=== PATIENT | female | born 1955 | race Asian ===

== ENCOUNTER 2016-12-21 10:00 | Day surgery (SDC) | payer OTHER ==
[2016-12-17 09:58] LABS: BASOPHILS % (AUTO) 0.5 % (0.0-2.0); EOSINOPHILS # (AUTO) 0.1 K/uL (0.0-0.4); EOSINOPHILS % (AUTO) 1.7 % (0.0-4.0); HEMATOCRIT 45.5 % (36-48); HEMOGLOBIN 15.1 g/dL (12.0-16.0); LYMPHOCYTES # (AUTO) 1.4 K/uL (1.0-5.5); LYMPHOCYTES % (AUTO) 23.2 % (20.5-51.5); MEAN CORPUSCULAR HEMOGLOBIN 30 pg (27-31); MEAN CORPUSCULAR HGB CONC 33 % (32-36); MEAN CORPUSCULAR VOLUME 90 fL (79.0-98.0); MONOCYTES # (AUTO) 0.5 K/uL (0.0-1.0); MONOCYTES % (AUTO) 7.7 % (1.7-9.3); NEUTROPHILS # (AUTO) 3.9 K/uL (1.8-7.7); NEUTROPHILS % (AUTO) 66.9 % (40.0-70.0); PLATELET COUNT (AUTO) 222 K/uL (130-430); RED BLOOD CELL COUNT(AUTO) 5.07 MIL/uL (4.2-6.2); RED CELL DISTRIBUTION WIDTH 12.7 % (9.0-15.0); WHITE BLOOD COUNT (AUTO) 5.9 K/uL (4.8-10.8)
[2016-12-17 10:07] LABS: BILIRUBIN,URINE NEGATIVE (NEGATIVE); BLOOD, URINE NEGATIVE (NEGATIVE); CLARITY/URINE CLEAR (CLEAR); COLOR,URINE YELLOW (YELLOW); GLUCOSE,URINE NEGATIVE (NEGATIVE); KETONES,URINE NEGATIVE (NEGATIVE); LEUKOCYTE ESTERASE ,URINE NEGATIVE (NEGATIVE); NITRITE, URINE NEGATIVE (NEGATIVE); PROTEIN URINE NEGATIVE (NEGATIVE); UROBILINOGEN,URINE 0.2 (0.2-1.0)
[2016-12-17 10:37] LABS: CALCIUM 9.2 mg/dL (8.4-11.0); CREATININE 0.81 mg/dL (0.55-1.30); POTASSIUM 3.6 mmol/L (3.5-5.1); THYROID STIMULATING HORMONE 0.68 uIu/mL (0.34-4.82); TOTAL BILIRUBIN 0.4 mg/dL (0.0-1.0); TOTAL PROTEIN, SERUM 7.5 g/dL (6.4-8.3)
[2016-12-18 13:37] LABS: HEMOGLOBIN A1C 5.8 % (4.8-5.6)
[2016-12-18 13:41] LABS: CREATININE, URINE 126.5 mg/dL; MICROALBUMIN URINE RANDOM 48.8 ug/ml (NOT ESTABLISHED); MICROALBUMIN/CREAT RATIO, UR 38.6 MG/G CRE (0.0-30.0)
[~2016-12-21] VITALS: Ht 152.4 cm; Wt 58.1 kg
[~2016-12-21 10:00] MED LIST: AMOX-426 PO; LACTIN GT
[2016-12-21 11:24] VITALS: O2SAT 97
[2016-12-21] MEDS ORDERED: LR 1,000 ML IV SCH (12:39)
[2016-12-21] MEDS ORDERED: HYDROmorphone 1 MG INJ. 1 MG/ML AMPUL IVP PRN (12:45)
[2016-12-21] MEDS ORDERED: KETOROLAC TROMETHAMINE 30 MG VIAL IVP PRN (12:45)
[2016-12-21] MEDS ORDERED: HYDROmorphone 2 MG/ML VIAL IVP PRN ×2 (12:45)
[2016-12-21] MEDS ORDERED: ONDANSETRON HCL 4 MG/2 ML VIAL IVP PRN (12:45)
[2016-12-21] MEDS ORDERED: MEPERIDINE HCL/PF 25 MG/ML DISP.SYRIN IVP PRN ×2 (12:45)
[2016-12-21] MEDS ORDERED: LR 1,000 ML IV.SOLN IV ONE (13:03)
[2016-12-21] MEDS ORDERED: fentaNYL CITRATE/PF 100 MCG/2 ML AMP IVP ONE (13:03)
[2016-12-21] MEDS ORDERED: CEFAZOLIN 2 GM IVPB PREMIX 50 ML IV ONE (13:03)
[2016-12-21] MEDS ORDERED: SEVOFLURANE 15 MIN GAS INH ONE (13:03)
[2016-12-21] MEDS ORDERED: MIDAZOLAM HCL 5 MG/5 ML VIAL IVP ONE (13:03)
[2016-12-21] MEDS ORDERED: KETOROLAC TROMETHAMINE 30 MG VIAL IVP ONE (13:03)
[2016-12-21] MEDS ORDERED: PROPOFOL 200MG/ 20ML VIAL (DIPRIVAN) IV ONE (13:03)
[2016-12-21] MEDS ORDERED: BUPIVACAINE /EPINEPHRINE/PF 0.5% 30 ML VIAL INJ ONE (13:03)
[2016-12-21] MEDS ORDERED: ONDANSETRON HCL 4 MG/2 ML VIAL IVP ONE (13:03)
[2016-12-21] MEDS ORDERED: NS IRRIG SOLN 1000 ML IR ONE (13:03)
[2016-12-21 15:25] VITALS: BP 117/68; PULSE 68; RESP 17
== END 2016-12-21 16:10 | disposition home or self-care (01) ==
LOC: SDS 10:00 → SMU 10:01 → SDS 16:10
PROVIDERS: ATTEND Surgery
DX: K64.3 Fourth degree hemorrhoids (principal); E11.9 Type 2 diabetes mellitus without complications; E04.1 Nontoxic single thyroid nodule; J45.909 Unspecified asthma, uncomplicated; K21.9 Gastro-esophageal reflux disease without esophagitis; I10 Essential (primary) hypertension
CPT/HCPCS: 36415; 45300; 46260; 80053; 80061; 81003; 82043; 82306; 82570; 82607; 82962; 83036; 84443; 85025; 88304; 93005; J0690; J1885; J2250; J2405; J2704; J3010; J3490; J7120

== ENCOUNTER 2017-01-01 16:58 | Inpatient (IN) | payer OTHER ==
[~2017-01-01] VITALS: Ht 152.4 cm; Wt 56.2 kg
[2017-01-01 17:15] VITALS: BP 180/115; PULSE 91; RESP 14; TEMP 98.6; O2SAT 97
[2017-01-01] MEDS ORDERED: ONDANSETRON HCL 4 MG/2 ML VIAL IVP ONE (17:15)
[2017-01-01] MEDS ORDERED: KETOROLAC TROMETHAMINE 30 MG VIAL IVP ONE (17:15)
--- NOTE | 2017-01-01 17:15 | NUR ---
Patient to ER bed 7 to gown for evaluation. Side rails up. Report given to ABAD ARANDA.
--- NOTE | 2017-01-01 17:15 | NUR ---
ER at bedside examining patient.
--- NOTE | 2017-01-01 17:20 | NUR ---
PT TO ER AAOx4 C/O ABD PAIN 05/03 STATES THAT SHE HD HEMORRHOIDECTOMY ON DEC 21, 2016, ALSO C/O RECTAL PAIN 05/03, STATES SHE TOOK TRAMADOL 7MG ONCE THIS MORNING, C/O NAUSEA, DENIES SOB DENIES CHEST PAIN DENIES VOMITING, STATES THAT SHE ALSO HAS PAINFUL URINATION FOR 2 DAYS
--- NOTE | 2017-01-01 17:30 | NUR ---
# 20 gauge angiocath placed to lac. Use of asceptic technique. Opsite placed over site. Blood return noted. Blood for lab drawn from site. Flushed with 10 cc of normal saline. No evidence of infiltration noted. Patient tolerated well.
[2017-01-01 17:38] LABS: BASOPHILS # (AUTO) 0.2 K/uL (0.0-0.2); BASOPHILS % (AUTO) 1.8 % (0.0-2.0); EOSINOPHILS # (AUTO) 0.1 K/uL (0.0-0.4); EOSINOPHILS % (AUTO) 0.8 % (0.0-4.0); HEMATOCRIT 49.1 % (36-48); HEMOGLOBIN 16.3 g/dL (12.0-16.0); LYMPHOCYTES # (AUTO) 1.7 K/uL (1.0-5.5); LYMPHOCYTES % (AUTO) 17.8 % (20.5-51.5); MEAN CORPUSCULAR HEMOGLOBIN 29 pg (27-31); MEAN CORPUSCULAR HGB CONC 33 % (32-36); MEAN CORPUSCULAR VOLUME 88 fL (79.0-98.0); MONOCYTES # (AUTO) 0.6 K/uL (0.0-1.0); MONOCYTES % (AUTO) 6.8 % (1.7-9.3); NEUTROPHILS # (AUTO) 6.8 K/uL (1.8-7.7); NEUTROPHILS % (AUTO) 72.8 % (40.0-70.0); PLATELET COUNT (AUTO) 256 K/uL (130-430); RED BLOOD CELL COUNT(AUTO) 5.56 MIL/uL (4.2-6.2); RED CELL DISTRIBUTION WIDTH 12.4 % (9.0-15.0); WHITE BLOOD COUNT (AUTO) 9.4 K/uL (4.8-10.8)
--- NOTE | 2017-01-01 17:39 | NUR ---
pt. out to ct via kait with puma
[2017-01-01 17:50] LABS: CALCIUM 10.1 mg/dL (8.4-11.0); CREATININE 0.89 mg/dL (0.55-1.30); POTASSIUM 3.4 mmol/L (3.5-5.1)
[2017-01-01 17:51] LABS: INR 0.9 (0.8-1.2)
[2017-01-01 17:54] LABS: ALBUMIN 4.5 g/dL (3.4-4.8); TOTAL BILIRUBIN 0.5 mg/dL (0.0-1.0); TOTAL PROTEIN, SERUM 8.4 g/dL (6.4-8.3)
--- NOTE | 2017-01-01 17:54 | NUR ---
pt. to bed 7 back from radiology via kait
--- NOTE | 2017-01-01 18:15 | NUR ---
PT. ABLE TO VOID URINE SENT TO LAB
--- NOTE | 2017-01-01 18:40 | NUR ---
Patient will be admitted to care of DR. SHELTON. Admitted to [facility] unit. Will go to room 108 C. Belongings list ASKED TO BE CMPLETED BY CARA Summary report printed. Report given to FILOMENA MELGOZA.
[2017-01-01 18:42] LABS: BILIRUBIN,URINE NEGATIVE (NEGATIVE); BLOOD, URINE 1+ (NEGATIVE); CLARITY/URINE CLEAR (CLEAR); COLOR,URINE YELLOW (YELLOW); GLUCOSE,URINE NEGATIVE (NEGATIVE); KETONES,URINE NEGATIVE (NEGATIVE); LEUKOCYTE ESTERASE ,URINE NEGATIVE (NEGATIVE); NITRITE, URINE NEGATIVE (NEGATIVE); PROTEIN URINE NEGATIVE (NEGATIVE); UROBILINOGEN,URINE 0.2 (0.2-1.0)
--- NOTE | 2017-01-01 18:51 | NUR ---
ADMISSION NOTE Received patient from ER via kait, received report from MANOJ MELGOZA. Patient admitted with diagnosis of FECAL IMFACTION. Patient oriented to hospital routine, call light, toileting and safety-patient verbalized understanding.
[2017-01-01] MEDS ORDERED: CALC-226 PO (18:58)
[2017-01-01] MEDS ORDERED: EZET10TA PO (18:58)
[2017-01-01] MEDS ORDERED: GLUXR500 PO (18:58)
[2017-01-01] MEDS ORDERED: VIT1TABL67 PO (18:58)
[2017-01-01] MEDS ORDERED: TEMA15CA51 PO (18:58)
--- NOTE | 2017-01-01 18:58 | NUR ---
MEDICATION RECONCILIATION COMPLETED
[2017-01-01 19:01] VITALS: BP 151/93; PULSE 79; RESP 18; TEMP 96.2; O2SAT 97
[2017-01-01 19:10] VITALS: BP 151/93; PULSE 79; RESP 16; TEMP 96.5; O2SAT 97
--- NOTE | 2017-01-01 19:10 | NUR ---
Initial note pt. received aaox4, no s/s of sob or distress noted at this time. pt. states she is having some pain, 7/10 on pain scale. will medicate for pain as ordered. IV access noted to left AC, saline lock. flushes well, no redness or swelling to the site. is at the bedside. plan of care discussed with both, verbalize understanding. pt. encouraged to call for any assistance. will continue to monitor for any changes. safety and fall precautions in place. call light in reach, bed in lowest position.
[2017-01-01 19:13] LABS: BACTERIA,URINE FEW /HPF (None Seen); RBC,URINE 0-3 /HPF (0-3)
[2017-01-01 19:14] LABS: FINE GRANULAR CASTS,URINE 0-10 /LPF (None Seen); MUCUS,URINE 1+ /LPF (None Seen)
[2017-01-01] MEDS ORDERED: MENTHOL/ZINC OXIDE 113 GM OINT. TP PRN (19:15)
[2017-01-01] MEDS ORDERED: DOCUSATE SODIUM 100 MG CAPSULE PO PRN (19:15)
[2017-01-01] MEDS ORDERED: MAGNESIUM CITRATE 300 ML ORAL SOLUTION PO ONE (19:15)
[2017-01-01] MEDS ORDERED: MORPHINE 2 MG/ML INJ. SYRINGE IVP PRN ×2 (19:15→21:15)
[2017-01-01] MEDS ORDERED: traMADol HCL HCL 50 MG TABLET (ULTRAM) PO PRN (19:15)
[2017-01-01] MEDS ORDERED: MINERAL OIL 133 ML ENEMA RC ONE ×2 (19:45→21:00)
[2017-01-01] MEDS: POLYETHYLENE GLYCOL 3350, 17 GM/ POWD.PACK PO SCH (20:40)
[2017-01-01] MEDS: PSYLLIUM HUSK 1 PKT PACKET PO SCH (20:40)
--- NOTE | 2017-01-01 20:50 | NUR ---
RN NOTE MINERAL OIL ENEMA GIVE. PT. TOLERATED WELL. ALREADY UP IN RESTROOM TO HAVE BM. PT. DID NOT WISH TO TAKE METAMUCIL OR MIRILAX THIS EVENING SHE STATES SHE WAS ALREADY GIVEN MAG CITRATE AND WAS GETTING THE ENEMA. WILL CONTINUE TO MONITOR.
[2017-01-01] MEDS ORDERED: POTASSIUM CHLORIDE 20 MEQ TAB.PRT.SR PO ONE (21:00)
[2017-01-01] MEDS ORDERED: NA PHOS,M-B/NA PHOS,DI-BA 118 ML (FLEET ENEMA) RC ONE (21:00)
[2017-01-01] MEDS ORDERED: DEXTROSE 50% JECT 50 ML DISP.SYRIN IVP PRN (21:15)
[2017-01-01] MEDS ORDERED: LACTOBACILLUS RHAMNOSUS GG 1 CAP CAPSULE PO ONE (21:15)
[2017-01-01] MEDS ORDERED: MINERAL OIL 30 ML UDC PO ONE (21:15)
[2017-01-01] MEDS ORDERED: ONDANSETRON HCL 4 MG/2 ML VIAL IVP PRN (21:15)
[2017-01-01] MEDS ORDERED: AMOXICILLIN/CLAVULANATE POTASSIUM 875 MG TABLET PO ONE (21:15)
[2017-01-01] MEDS ORDERED: ACETAMINOPHEN 325 MG TABLET PO PRN (21:15)
[2017-01-01] MEDS ORDERED: TEMAZEPAM 15 MG CAPSULE PO SCH (21:15)
[2017-01-01] MEDS ORDERED: INSULIN REGULAR, HUMAN 100 UNITS/ML, 10 ML VIAL (novoLIN R) SUBCUT PRN (21:15)
[2017-01-01] MEDS ORDERED: cloNIDine HCL 0.1 MG TABLET PO PRN (21:45)
[2017-01-01] MEDS ORDERED: PANTOPRAZOLE SODIUM 40 MG TAB PO ONE (22:00)
[2017-01-01] MEDS ORDERED: TEMAZEPAM 15 MG CAPSULE PO ONE (22:00)
--- NOTE | 2017-01-01 22:00 | NUR ---
rounds pt. resting in bed. is at the bedside. provided pt. with jodie per her request. pt. states pain medication has reduced pain, however she has still not been able to have a bowel movement. pt. encourage to try to relax when trying to have a BM. verbalizes understanding. will continue to monitor. call light in reach. bed in lowest position.
[2017-01-01 23:52] VITALS: BP 129/82; PULSE 78; RESP 16; TEMP 97.8; O2SAT 95
--- NOTE | 2017-01-02 00:06 | NUR ---
rounds pt. resting in bed. is at the bedside. pt. still not able to have a BM. will continue to monitor. SCDs applied bilaterally. medication orders were input late by dr. medina, will administer. will initiate IV fluids as ordered. safety and fall precautions in place, call light in reach.
[2017-01-02] MEDS: LR 1,000 ML IV SCH ×3 (00:30→15:23)
--- NOTE | 2017-01-02 01:48 | NUR ---
CONSULT: DR LO (DR SAW PATIENT).
--- NOTE | 2017-01-02 02:01 | NUR ---
rounds pt. resting in bed. no complaints of any pain at this time. is at bedside. IV fluids are infusing well. will continue to monitor for any changes. safety and fall precautions in place. call light in reach, bed in lowest position.
--- NOTE | 2017-01-02 04:17 | NUR ---
ROUNDS PT. RESTING IN BED WITH EYES CLOSED. CHEST RISE AND FALL NOTED. NO SIGNS OF ACUTE DISTRESS. NO FACIAL GRIMACING INDICATING ANY PAIN. IV FLUIDS INFUSING WELL ORDERED. REMAINS AT THE BEDSIDE. WILL CONTINUE TO MONITOR. SAFETY AND FALL PRECAUTIONS IN PLACE. CALL LIGHT IN REACH.
[2017-01-02] MEDS: KETOROLAC TROMETHAMINE 15 MG VIAL IVP PRN ×3 (05:12→22:30)
[2017-01-02 05:14] VITALS: BP 127/89; PULSE 60; RESP 60; TEMP 97; O2SAT 18
--- NOTE | 2017-01-02 06:42 | NUR ---
CLOSING NOTE PT. RESTING IN BED. NO ACUTE DISTRESS NOTED. BLOOD SUGAR THIS AM WAS 129, NO COVERAGE NEEDED. PT. UNABLE TO HAVE A BOWEL MOVEMENT THIS SHIFT. SPECIMEN CUP LEFT AT THE BEDSIDE FOR PT. TO PROVIDE URINE SAMPLE. IV FLUIDS INFUSING WELL. PT. REPORTS A DECREASE IN PAIN. IS AT THE BEDSIDE. ALL NECESSARY NEEDS MET. PT. LEFT COMFORTABLE. SAFETY AND FALL PRECAUTIONS MAINTAINED. WILL ENDORSE CARE TO AM NURSE. CALL LIGHT IN REACH.
[2017-01-02 06:58] LABS: BASOPHILS % (AUTO) 0.4 % (0.0-2.0); EOSINOPHILS # (AUTO) 0.1 K/uL (0.0-0.4); EOSINOPHILS % (AUTO) 0.8 % (0.0-4.0); HEMATOCRIT 42.3 % (36-48); HEMOGLOBIN 14.2 g/dL (12.0-16.0); LYMPHOCYTES # (AUTO) 1.1 K/uL (1.0-5.5); LYMPHOCYTES % (AUTO) 12.1 % (20.5-51.5); MEAN CORPUSCULAR HEMOGLOBIN 30 pg (27-31); MEAN CORPUSCULAR HGB CONC 34 % (32-36); MEAN CORPUSCULAR VOLUME 89 fL (79.0-98.0); MONOCYTES # (AUTO) 0.6 K/uL (0.0-1.0); MONOCYTES % (AUTO) 7.3 % (1.7-9.3); NEUTROPHILS % (AUTO) 79.4 % (40.0-70.0); PLATELET COUNT (AUTO) 219 K/uL (130-430); RED BLOOD CELL COUNT(AUTO) 4.74 MIL/uL (4.2-6.2); RED CELL DISTRIBUTION WIDTH 12.3 % (9.0-15.0); WHITE BLOOD COUNT (AUTO) 8.8 K/uL (4.8-10.8)
[2017-01-02 07:30] LABS: ALBUMIN 3.5 g/dL (3.4-4.8); CALCIUM 9.3 mg/dL (8.4-11.0); CREATININE 1.1 mg/dL (0.55-1.30); POTASSIUM 3.8 mmol/L (3.5-5.1); TOTAL BILIRUBIN 0.5 mg/dL (0.0-1.0); TOTAL PROTEIN, SERUM 6.7 g/dL (6.4-8.3)
--- NOTE | 2017-01-02 07:49 | NUR ---
INITIAL NOTES RECEIVED PATIENT ON BED AWAKE.BREATHING EVEN AND UNLABORED.NO ACUTE DISTRESS.IVF INFUSING WELL;NO SIGNS AND SYMPTOMS OF INFILTRATION.SAFETY AND FALL PRECAUTIONS IN PLACE.CALL LIGHT WITHIN REACH
[2017-01-02 07:51] VITALS: BP 118/61; PULSE 63; RESP 16; TEMP 96.8; O2SAT 95
[2017-01-02] MEDS: MORPHINE 4 MG/ML INJ. SYRINGE IVP PRN ×2 (08:39→19:08)
[2017-01-02] MEDS: PSYLLIUM HUSK 1 PKT PACKET PO SCH ×3 (08:41→21:00)
[2017-01-02] MEDS: PANTOPRAZOLE SODIUM 40 MG TAB PO SCH ×2 (08:41→22:37)
[2017-01-02] MEDS: POLYETHYLENE GLYCOL 3350, 17 GM/ POWD.PACK PO SCH ×2 (08:41→21:00)
[2017-01-02] MEDS: AMOXICILLIN/CLAVULANATE POTASSIUM 875 MG TABLET PO SCH ×2 (08:41→22:22)
[2017-01-02] MEDS: LACTOBACILLUS RHAMNOSUS GG 1 CAP CAPSULE PO SCH ×2 (08:41→22:22)
[2017-01-02] MEDS: CALCIUM CARBONATE/VITAMIN D3 1 TAB TABLET PO SCH (08:42)
[2017-01-02] MEDS: MINERAL OIL 30 ML UDC PO SCH ×2 (08:42→21:00)
[2017-01-02] MEDS: EZETIMIBE 10 MG TABLET PO SCH (08:42)
[2017-01-02] MEDS: MINERAL OIL 133 ML ENEMA RC SCH ×2 (08:46→15:46)
[2017-01-02] MEDS ORDERED: NON-FORMULARY MEDICATION (Vit D3 & K/Berberine Hcl/Hops (Ostera Tablet) 1 EACH) PO SCH (09:00)
--- NOTE | 2017-01-02 09:45 | NUR ---
NOTES CHECKED PATIENT;NEEDS ATTENDED TO
--- NOTE | 2017-01-02 11:45 | NUR ---
NOTES PATIENT ON BED ASLEEP.NO ACUTE DISTRESS
[2017-01-02 12:00] VITALS: BP 121/80; PULSE 66; RESP 21; TEMP 98.3; O2SAT 96
--- NOTE | 2017-01-02 14:00 | NUR ---
NOTES PATIENT ON BED AWAKE.NEEDS ATTENDED TO
[2017-01-02 16:00] VITALS: BP 142/65; PULSE 79; RESP 21; TEMP 97.1; O2SAT 97
[2017-01-02] MEDS ORDERED: MAGNESIUM CITRATE 300 ML ORAL SOLUTION PO ONE (17:00)
[2017-01-02] MEDS ORDERED: NA PHOS,M-B/NA PHOS,DI-BA 118 ML (FLEET ENEMA) RC ONE (17:00)
--- NOTE | 2017-01-02 17:00 | NUR ---
NOTES DR. SHELTON CAME AND EXAMINED THE PATIENT;WITH ORDERS AND CARRIED OUT
--- NOTE | 2017-01-02 18:30 | NUR ---
NOTES ASSISTED PATIENT TO THE RESTROOM;WITH STEADY GAIT;TOLERATED ACTIVITY WELL
--- NOTE | 2017-01-02 18:55 | NUR ---
CLOSING NOTES PATIENT ON BED AWAKE.BREATHING EVEN AND UNLABORED COMPLAINING OF MODERATE PAIN IN THE RECTUM.MORPHINE 4MG GIVEN ORDERED.IVF INFUSING WELL;NO SIGNS AND SYMPTOMS OF INFILTRATION.SAFETY AND FALL PRECAUTIONS IN PLACE.CALL LIGHT WITHIN REACH.WILL ENDORSE TO NEXT SHIFT ACCORDINGLY
[2017-01-02 19:35] VITALS: BP 173/99; PULSE 65; RESP 16; TEMP 97; O2SAT 96
--- NOTE | 2017-01-02 19:35 | NUR ---
INITIAL NOTE PT. RECEIVED AAOX4. STATES SHE IS HAVING NAUSEA AND PAIN. WAS JUST MEDICATED FOR PAIN, BUT IT DOES NOT SEEM TO HAVE TAKEN EFFECT YET. WILL MEDICATE FOR NAUSEA ORDERED. BP ELEVATED, WILL GIVE PRN DOSE OF CATAPRESS FOR BP >160. PT. HAS NOT HAD BM. WILL DO TAP WATER ENEMA ORDERED. PT. STATES SHE HAS HAD DIFFICULTIES URINATING. BLADDER SCAN DONE, [address] SHELTON. PLAN OF CARE DISCUSSED WITH THE PT, VERBALIZES UNDERSTANDING. IS AT THE BEDSIDE. IV FLUIDS INFUSING WELL. WILL CONTINUE TO MONITOR. SAFETY AND FALL PRECAUTIONS IN PLACE. CALL LIGHT IN REACH.
--- NOTE | 2017-01-02 20:35 | NUR ---
Paged Dr. Neely, katiana Howard.
--- NOTE | 2017-01-02 20:54 | NUR ---
2nd Page for katiana Estrella.
[2017-01-02] MEDS ORDERED: TEMAZEPAM 15 MG CAPSULE PO SCH (21:00)
--- NOTE | 2017-01-02 22:30 | NUR ---
RN NOTES (ENEMA) PT RECEIVED ENEMA, TOLERATED WELL. ALREADY HAD X 1 BM. WILL CONTINUE TO DO MORE IF PT. CAN TOLERATE WELL. REMAINING AT BEDSIDE WITH PT. TO ASSIST HER.
--- NOTE | 2017-01-02 22:50 | NUR ---
RN NOTES PT. HAS HAD A TOTAL OF X3 BM AND HAS VOIDED SPONTANEOUSLY. PT. REPORTS FEELING BETTER. WILL CONTINUE TO MONITOR. ASSISTING PT. WITH HYGIENE.
[2017-01-03] VITALS (7 sets, daily range): BP systolic 98–114; BP diastolic 56–84; PULSE 64–84; RESP 16–21; TEMP 97.1–99.4; O2SAT 96–98
--- NOTE | 2017-01-03 00:05 | NUR ---
rounds pt. blood pressure has stabilized following passing of bowel movements. pt. reports 1/10 pain on pain scale, much improved from 7/10 at start of shift. will continue to monitor. call light in reach.
--- NOTE | 2017-01-03 03:33 | NUR ---
rounds pt. resting in bed with eyes closed, chest rise and fall noted. is at bedside. iv fluids infusing well. no facial grimacing indicating pain. will continue to monitor. call light in reach.
--- NOTE | 2017-01-03 07:00 | NUR ---
closing note pt. resting in bed, at the bedside. AM blood sugar was 103, no coverage needed. pt. able to successfully have x3 BM this shift. pt states she is much more comfortable now and no longer in pain. all necessary needs met. safety and fall precautions maintained. will endorse care to am nurse. call light in reach.
[2017-01-03] MEDS: MINERAL OIL 30 ML UDC PO SCH (08:06)
[2017-01-03] MEDS: LACTOBACILLUS RHAMNOSUS GG 1 CAP CAPSULE PO SCH (08:06)
[2017-01-03] MEDS: AMOXICILLIN/CLAVULANATE POTASSIUM 875 MG TABLET PO SCH (08:07)
[2017-01-03] MEDS: POLYETHYLENE GLYCOL 3350, 17 GM/ POWD.PACK PO SCH (08:07)
[2017-01-03] MEDS: PANTOPRAZOLE SODIUM 40 MG TAB PO SCH (08:07)
[2017-01-03] MEDS: CALCIUM CARBONATE/VITAMIN D3 1 TAB TABLET PO SCH (08:07)
[2017-01-03] MEDS: PSYLLIUM HUSK 1 PKT PACKET PO SCH ×2 (08:07→14:07)
[2017-01-03] MEDS: EZETIMIBE 10 MG TABLET PO SCH (08:07)
--- NOTE | 2017-01-03 10:30 | NUR ---
NOTES DR. LO CAME AND EXAMINED THE PATIENT;WITH ORDERS AND CARRIED OUT
--- NOTE | 2017-01-03 13:16 | NUR ---
NOTES CHECKED PATIENT;NO ACUTE DISTRESS
--- NOTE | 2017-01-03 15:24 | NUR ---
NOTES PATIENT SITTING ON THE CHAIR;NO ACUTE DISTRESS
[2017-01-03] MEDS: LR 1,000 ML IV SCH (15:53)
[2017-01-03 16:18] LABS: BILIRUBIN,URINE NEGATIVE (NEGATIVE); BLOOD, URINE 2+ (NEGATIVE); CLARITY/URINE CLEAR (CLEAR); COLOR,URINE YELLOW (YELLOW); GLUCOSE,URINE NEGATIVE (NEGATIVE); KETONES,URINE NEGATIVE (NEGATIVE); LEUKOCYTE ESTERASE ,URINE 2+ (NEGATIVE); NITRITE, URINE NEGATIVE (NEGATIVE); PROTEIN URINE NEGATIVE (NEGATIVE); UROBILINOGEN,URINE 0.2 (0.2-1.0)
--- NOTE | 2017-01-03 16:56 | NUR ---
NOTES BLOOD SUGAR=98;PATIENT CLAIMED SHE FEELS A LITTLE BIT SHAKY;OFFERED ORANGE JUICE AND CRACKERS BUT ONLY TOOK THE OJ
[2017-01-03 16:58] LABS: BACTERIA,URINE MODERATE /HPF (None Seen); WBC,URINE 80-100 /HPF (0-3)
[2017-01-03 16:59] LABS: MUCUS,URINE None Seen /LPF (None Seen)
--- NOTE | 2017-01-03 17:15 | NUR ---
NOTES DR. SHELTON CAME AND EXAMINED THE PATIENT;WAITING FOR ORDERS
--- NOTE | 2017-01-03 18:15 | NUR ---
NOTES PATIENT ON BED AWAKE WITH AT BEDSIDE.BREATHING EVEN AND UNLABORED.NO ACUTE DISTRESS.IVF INFUSING WELL;NO SIGNS AND SYMPTOMS OF INFILTRATION.SAFETY AND FALL PRECAUTIONS IN PLACE.CALL LIGHT WITHIN REACH.WILL ENDORSE TO NEXT SHIFT ACCORDINGLY
--- NOTE | 2017-01-03 18:36 | NUR ---
NOTES SPOKE WITH DR. SHELTON;WITH ORDER FOR DISCHARGE AND CARRIED OUT
[2017-01-03] MEDS ORDERED: DOCU250C PO (18:40)
[2017-01-03] MEDS ORDERED: MINE25OI3 TP (18:42)
--- NOTE | 2017-01-03 19:45 | NUR ---
pt.d/c home.dc/instruction paper work prepared per radharn,day-shift.i reviewed d/c instructions/colace,mineral oil po medications prescribed.v/s assessed p/t d/c.stable values w/in normal limits.i have d/c iv access lock.belongings list reviewed:all pertemences accounted 4.paper work signed per pt.
== END 2017-01-03 19:45 | disposition home or self-care (01) | DRG 389 ==
LOC: SED 16:58 → SMU 18:28
PROVIDERS: ADMIT Internal Medicine; ATTEND Internal Medicine
DX: K56.41 Fecal impaction (principal); N39.0 Urinary tract infection, site not specified; J45.909 Unspecified asthma, uncomplicated; I10 Essential (primary) hypertension; E03.9 Hypothyroidism, unspecified; G47.00 Insomnia, unspecified; E11.9 Type 2 diabetes mellitus without complications; Z79.4 Long term (current) use of insulin; E78.5 Hyperlipidemia, unspecified
CPT/HCPCS: 36415; 74000-TC; 80053; 81000-TC; 82150-TC; 82962; 83690-TC; 85025; 85610-TC; 85730-TC; 87086; 87186-TC; 96374; 96375; 99285; J1815; J1885; J2270; J2405; J7120

== ENCOUNTER 2017-04-28 08:43 | Outpatient (CLI) | payer OTHER ==
[~2017-04-28 08:43] MED LIST changes: +CALC-226 PO; +DOCU250C PO; +EZET10TA PO; +GLUXR500 PO; +MINE25OI3 TP; +TEMA15CA51 PO; +VIT1TABL67 PO
[2017-04-28 09:36] LABS: BASOPHILS % (AUTO) 0.5 % (0.0-2.0); EOSINOPHILS # (AUTO) 0.1 K/uL (0.0-0.4); EOSINOPHILS % (AUTO) 1.2 % (0.0-4.0); HEMATOCRIT 44.4 % (36-48); HEMOGLOBIN 14.6 g/dL (12.0-16.0); LYMPHOCYTES # (AUTO) 1.8 K/uL (1.0-5.5); LYMPHOCYTES % (AUTO) 30.1 % (20.5-51.5); MEAN CORPUSCULAR HEMOGLOBIN 29 pg (27-31); MEAN CORPUSCULAR HGB CONC 33 % (32-36); MEAN CORPUSCULAR VOLUME 89 fL (79.0-98.0); MONOCYTES # (AUTO) 0.5 K/uL (0.0-1.0); MONOCYTES % (AUTO) 8.6 % (1.7-9.3); NEUTROPHILS # (AUTO) 3.5 K/uL (1.8-7.7); NEUTROPHILS % (AUTO) 59.6 % (40.0-70.0); PLATELET COUNT (AUTO) 230 K/uL (130-430); RED BLOOD CELL COUNT(AUTO) 5.02 MIL/uL (4.2-6.2); RED CELL DISTRIBUTION WIDTH 12.4 % (9.0-15.0); WHITE BLOOD COUNT (AUTO) 5.9 K/uL (4.8-10.8)
[2017-04-28 09:57] LABS: ALBUMIN 3.9 g/dL (3.4-4.8); CREATININE 0.78 mg/dL (0.55-1.30); FREE T4 (FREE THYROXINE) 0.8 ng/dL (0.6-1.6); POTASSIUM 3.8 mmol/L (3.5-5.1); THYROID STIMULATING HORMONE 0.92 uIu/mL (0.34-4.82); TOTAL BILIRUBIN 0.3 mg/dL (0.0-1.0); TOTAL PROTEIN, SERUM 7.4 g/dL (6.4-8.3)
[2017-04-28 09:59] LABS: BILIRUBIN,URINE NEGATIVE (NEGATIVE); BLOOD, URINE NEGATIVE (NEGATIVE); CLARITY/URINE CLEAR (CLEAR); COLOR,URINE YELLOW (YELLOW); GLUCOSE,URINE NEGATIVE (NEGATIVE); KETONES,URINE NEGATIVE (NEGATIVE); LEUKOCYTE ESTERASE ,URINE NEGATIVE (NEGATIVE); NITRITE, URINE NEGATIVE (NEGATIVE); PH,URINE 5.5 (5.0-8.0); PROTEIN URINE NEGATIVE (NEGATIVE); UROBILINOGEN,URINE 0.2 (0.2-1.0)
[2017-04-29 15:12] LABS: HEMOGLOBIN A1C 5.8 % (4.8-5.6)
== END 2017-04-28 20:55 | disposition home or self-care (01) ==
LOC: SLB 08:43
PROVIDERS: ATTEND Internal Medicine
DX: I10 Essential (primary) hypertension (principal); E78.5 Hyperlipidemia, unspecified; R73.9 Hyperglycemia, unspecified
CPT/HCPCS: 36415; 80053; 80061; 81003; 82306; 82607; 83036; 84439; 84443-TC; 85025

== ENCOUNTER 2017-06-22 09:24 | Outpatient (CLI) | payer OTHER | END 2017-06-22 19:35 | disposition home or self-care (01) | LOC: SRD 09:24 | PROVIDERS: ATTEND Internal Medicine | DX: M17.0 Bilateral primary osteoarthritis of knee (principal); M89.9 Disorder of bone, unspecified ==

== ENCOUNTER 2017-07-21 07:05 | Day surgery (SDC) | payer OTHER ==
[~2017-07-21] VITALS: Ht 152.4 cm; Wt 57.6 kg
[2017-07-21 13:13] VITALS: BP_SYST 136
== END 2017-07-21 10:35 | disposition home or self-care (01) ==
LOC: SDS 07:05 → SMU 07:11 → SDS 10:35
PROVIDERS: ATTEND Internal Medicine
DX: Z12.11 Encounter for screening for malignant neoplasm of colon (principal); D12.2 Benign neoplasm of ascending colon; D12.5 Benign neoplasm of sigmoid colon; D12.8 Benign neoplasm of rectum; K57.30 Diverticulosis of large intestine without perforation or abscess without bleeding; E03.9 Hypothyroidism, unspecified; Z98.890 Other specified postprocedural states
CPT/HCPCS: 45380; 82962; 88305

== ENCOUNTER 2017-08-12 12:58 | Outpatient (CLI) | payer OTHER ==
[2017-08-12 13:49] LABS: BASOPHILS % (AUTO) 0.6 % (0.0-2.0); EOSINOPHILS # (AUTO) 0.3 K/uL (0.0-0.4); EOSINOPHILS % (AUTO) 3.3 % (0.0-4.0); HEMATOCRIT 48.4 % (36-48); HEMOGLOBIN 15.7 g/dL (12.0-16.0); LYMPHOCYTES # (AUTO) 1.8 K/uL (1.0-5.5); LYMPHOCYTES % (AUTO) 22.7 % (20.5-51.5); MEAN CORPUSCULAR HEMOGLOBIN 29 pg (27-31); MEAN CORPUSCULAR HGB CONC 33 % (32-36); MEAN CORPUSCULAR VOLUME 90 fL (79.0-98.0); MONOCYTES # (AUTO) 0.7 K/uL (0.0-1.0); MONOCYTES % (AUTO) 8.5 % (1.7-9.3); NEUTROPHILS # (AUTO) 5.2 K/uL (1.8-7.7); NEUTROPHILS % (AUTO) 64.9 % (40.0-70.0); PLATELET COUNT (AUTO) 257 K/uL (130-430); RED BLOOD CELL COUNT(AUTO) 5.36 MIL/uL (4.2-6.2); RED CELL DISTRIBUTION WIDTH 12.4 % (9.0-15.0)
[2017-08-12 13:56] LABS: BILIRUBIN,URINE NEGATIVE (NEGATIVE); BLOOD, URINE NEGATIVE (NEGATIVE); CLARITY/URINE CLEAR (CLEAR); COLOR,URINE YELLOW (YELLOW); GLUCOSE,URINE NEGATIVE (NEGATIVE); KETONES,URINE NEGATIVE (NEGATIVE); LEUKOCYTE ESTERASE ,URINE NEGATIVE (NEGATIVE); NITRITE, URINE NEGATIVE (NEGATIVE); PROTEIN URINE NEGATIVE (NEGATIVE); UROBILINOGEN,URINE 0.2 (0.2-1.0)
[2017-08-12 14:33] LABS: ALBUMIN 3.9 g/dL (3.4-4.8); CALCIUM 9.9 mg/dL (8.4-11.0); CREATININE 0.96 mg/dL (0.55-1.30); POTASSIUM 3.8 mmol/L (3.5-5.1); THYROID STIMULATING HORMONE 0.5 uIu/mL (0.34-4.82); TOTAL BILIRUBIN 0.5 mg/dL (0.0-1.0)
[2017-08-13 09:34] LABS: HEMOGLOBIN A1C 5.8 % (4.8-5.6)
[2017-08-14 06:58] LABS: CREATININE, URINE 281.9 mg/dL; MICROALBUMIN URINE RANDOM 47.7 ug/ml (NOT ESTABLISHED)
[2017-08-14 06:59] LABS: MICROALBUMIN/CREAT RATIO, UR 16.9 MG/G CRE (0.0-30.0)
== END 2017-08-12 20:00 | disposition home or self-care (01) ==
LOC: SLB 12:58
PROVIDERS: ATTEND Internal Medicine
DX: I10 Essential (primary) hypertension (principal); E11.9 Type 2 diabetes mellitus without complications; E78.5 Hyperlipidemia, unspecified
CPT/HCPCS: 36415; 80053; 80061; 81003; 82043; 82306; 82570; 82607; 83036; 84443-TC; 85025

== ENCOUNTER 2017-08-26 09:34 | Outpatient (CLI) | payer OTHER | END 2017-08-26 17:11 | disposition home or self-care (01) | LOC: SUS 09:34 | PROVIDERS: ATTEND Internal Medicine | DX: E04.2 Nontoxic multinodular goiter (principal) | CPT/HCPCS: 76536-TC ==

== ENCOUNTER → 2017-11-11 | Day surgery (SDC) | payer OTHER | END | disposition still patient (30) | LOC: SDS 08:18 | PROVIDERS: ATTEND Specialist | DX: E04.1 Nontoxic single thyroid nodule (principal) | CPT/HCPCS: 10022; 88172; 88173; 88305; 88307 ==

== ENCOUNTER 2017-11-17 08:35 | Outpatient (CLI) | payer OTHER ==
[2017-11-17 09:36] LABS: BASOPHILS % (AUTO) 0.6 % (0.0-2.0); EOSINOPHILS # (AUTO) 0.1 K/uL (0.0-0.4); EOSINOPHILS % (AUTO) 1.7 % (0.0-4.0); HEMATOCRIT 48.7 % (36-48); HEMOGLOBIN 15.6 g/dL (12.0-16.0); LYMPHOCYTES # (AUTO) 1.7 K/uL (1.0-5.5); LYMPHOCYTES % (AUTO) 30.3 % (20.5-51.5); MEAN CORPUSCULAR HEMOGLOBIN 29 pg (27-31); MEAN CORPUSCULAR HGB CONC 32 % (32-36); MEAN CORPUSCULAR VOLUME 89 fL (79.0-98.0); MONOCYTES # (AUTO) 0.5 K/uL (0.0-1.0); MONOCYTES % (AUTO) 8.8 % (1.7-9.3); NEUTROPHILS # (AUTO) 3.2 K/uL (1.8-7.7); NEUTROPHILS % (AUTO) 58.6 % (40.0-70.0); PLATELET COUNT (AUTO) 283 K/uL (130-430); RED BLOOD CELL COUNT(AUTO) 5.45 MIL/uL (4.2-6.2); RED CELL DISTRIBUTION WIDTH 12.4 % (9.0-15.0); WHITE BLOOD COUNT (AUTO) 5.5 K/uL (4.8-10.8)
[2017-11-17 09:39] LABS: BILIRUBIN,URINE NEGATIVE (NEGATIVE); BLOOD, URINE NEGATIVE (NEGATIVE); CLARITY/URINE CLEAR (CLEAR); COLOR,URINE YELLOW (YELLOW); GLUCOSE,URINE NEGATIVE (NEGATIVE); KETONES,URINE NEGATIVE (NEGATIVE); LEUKOCYTE ESTERASE ,URINE NEGATIVE (NEGATIVE); NITRITE, URINE NEGATIVE (NEGATIVE); PH,URINE 5.5 (5.0-8.0); PROTEIN URINE NEGATIVE (NEGATIVE); UROBILINOGEN,URINE 0.2 (0.2-1.0)
[2017-11-17 10:02] LABS: ALBUMIN 4.2 g/dL (3.4-4.8); CALCIUM 10.2 mg/dL (8.4-11.0); CREATININE 0.78 mg/dL (0.55-1.30); POTASSIUM 3.8 mmol/L (3.5-5.1); TOTAL BILIRUBIN 0.6 mg/dL (0.0-1.0)
== END 2017-11-17 18:34 | disposition home or self-care (01) ==
LOC: SMA 08:35
PROVIDERS: ATTEND Specialist
DX: Z12.31 Encounter for screening mammogram for malignant neoplasm of breast (principal); R79.89 Other specified abnormal findings of blood chemistry
CPT/HCPCS: 36415; 77067; 80053; 80061; 81003; 83036; 85025

== ENCOUNTER 2018-03-01 17:10 | Outpatient (CLI) | payer OTHER | END 2018-03-01 20:19 | disposition home or self-care (01) | LOC: SRD 17:10 | PROVIDERS: ATTEND Internal Medicine | DX: J18.9 Pneumonia, unspecified organism (principal); I70.8 Atherosclerosis of other arteries | CPT/HCPCS: 71046-TC ==

== ENCOUNTER 2018-03-30 16:26 | Outpatient (CLI) | payer OTHER | END 2018-03-30 19:48 | disposition home or self-care (01) | LOC: SRD 16:26 | PROVIDERS: ATTEND Internal Medicine | DX: J84.10 Pulmonary fibrosis, unspecified (principal); I70.90 Unspecified atherosclerosis; K76.89 Other specified diseases of liver; R19.00 Intra-abdominal and pelvic swelling, mass and lump, unspecified site; K44.9 Diaphragmatic hernia without obstruction or gangrene | CPT/HCPCS: 71250-TC ==

== ENCOUNTER 2018-06-01 21:59 | Emergency (ER) | payer OTHER ==
[~2018-06-01] VITALS: Ht 152.4 cm; Wt 58.1 kg
[~2018-06-01 21:59] MED LIST changes: -CALC-226 PO; +CALC-823 PO; -DOCU250C PO; +DOCU250C14 PO; +TEMA15CA5 PO; -TEMA15CA51 PO
[2018-06-01 22:04] VITALS: BP_SYST 148
[2018-06-01] MEDS ORDERED: ONDANSETRON 4 MG ODT TAB PO ONE (23:15)
[2018-06-01] MEDS ORDERED: FAMOTIDINE 20 MG TABLET PO ONE (23:15)
[2018-06-01] MEDS ORDERED: MAG HYDROX/AL HYDROX/SIMETH 30 ML, BELLADONNA ALKALOIDS/PHENOBARB 10 ML, LIDOCAINE VISC... PO ONE ×3 (23:15)
[2018-06-02 00:35] VITALS: BP_SYST 136
== END 2018-06-02 00:35 | disposition home or self-care (01) ==
LOC: SED 21:59
DX: K52.9 Noninfective gastroenteritis and colitis, unspecified (principal); J45.909 Unspecified asthma, uncomplicated; E03.9 Hypothyroidism, unspecified; E78.5 Hyperlipidemia, unspecified; G47.00 Insomnia, unspecified; I10 Essential (primary) hypertension; Z79.899 Other long term (current) drug therapy
CPT/HCPCS: 99284; J2001; Q0162

== ENCOUNTER 2018-06-15 10:59 | Outpatient (CLI) | payer OTHER ==
[2018-06-15 11:34] LABS: BILIRUBIN,URINE NEGATIVE (NEGATIVE); BLOOD, URINE NEGATIVE (NEGATIVE); CLARITY/URINE CLEAR (CLEAR); COLOR,URINE YELLOW (YELLOW); GLUCOSE,URINE NEGATIVE (NEGATIVE); KETONES,URINE NEGATIVE (NEGATIVE); LEUKOCYTE ESTERASE ,URINE NEGATIVE (NEGATIVE); NITRITE, URINE NEGATIVE (NEGATIVE); PROTEIN URINE NEGATIVE (NEGATIVE); UROBILINOGEN,URINE 0.2 (0.2-1.0)
[2018-06-15 11:35] LABS: BASOPHILS % (AUTO) 0.6 % (0.0-2.0); EOSINOPHILS # (AUTO) 0.1 K/uL (0.0-0.4); EOSINOPHILS % (AUTO) 2.6 % (0.0-4.0); HEMATOCRIT 44.7 % (36-48); HEMOGLOBIN 15.4 g/dL (12.0-16.0); LYMPHOCYTES # (AUTO) 1.8 K/uL (1.0-5.5); LYMPHOCYTES % (AUTO) 32.6 % (20.5-51.5); MEAN CORPUSCULAR HEMOGLOBIN 31 pg (27-31); MEAN CORPUSCULAR HGB CONC 34 % (32-36); MEAN CORPUSCULAR VOLUME 89 fL (79.0-98.0); MONOCYTES # (AUTO) 0.4 K/uL (0.0-1.0); MONOCYTES % (AUTO) 7.6 % (1.7-9.3); NEUTROPHILS # (AUTO) 3.2 K/uL (1.8-7.7); NEUTROPHILS % (AUTO) 56.6 % (40.0-70.0); PLATELET COUNT (AUTO) 257 K/uL (130-430); RED CELL DISTRIBUTION WIDTH 13.4 % (9.0-15.0); WHITE BLOOD COUNT (AUTO) 5.5 K/uL (4.8-10.8)
[2018-06-15 12:02] LABS: CALCIUM 9.4 mg/dL (8.4-11.0); CREATININE 0.83 mg/dL (0.55-1.30); THYROID STIMULATING HORMONE 1.5 uIu/mL (0.34-4.82); TOTAL BILIRUBIN 0.3 mg/dL (0.0-1.0)
[2018-06-16 11:42] LABS: HEMOGLOBIN A1C 5.7 % (4.8-5.6)
== END 2018-06-15 19:02 | disposition home or self-care (01) ==
LOC: SLB 10:59
PROVIDERS: ATTEND Internal Medicine
DX: I10 Essential (primary) hypertension (principal); E56.9 Vitamin deficiency, unspecified; E78.5 Hyperlipidemia, unspecified; E11.65 Type 2 diabetes mellitus with hyperglycemia; E03.9 Hypothyroidism, unspecified
CPT/HCPCS: 36415; 80053; 80061; 81003; 82043; 82306; 82570; 82607; 83036; 84443-TC; 85025

== ENCOUNTER 2018-06-20 09:01 | Outpatient (CLI) | payer OTHER | END 2018-06-20 20:45 | disposition home or self-care (01) | LOC: SMI 09:01 | PROVIDERS: ATTEND Psychiatry & Neurology Neurology | DX: R90.82 White matter disease, unspecified (principal); G25.0 Essential tremor; R41.3 Other amnesia; R51 Headache; E03.9 Hypothyroidism, unspecified; I10 Essential (primary) hypertension; J45.909 Unspecified asthma, uncomplicated | CPT/HCPCS: 70551 ==

== ENCOUNTER 2018-06-29 16:41 | Outpatient (CLI) | payer OTHER | END 2018-06-29 19:51 | disposition home or self-care (01) | LOC: SRD 16:41 | PROVIDERS: ATTEND Internal Medicine | DX: M47.896 Other spondylosis, lumbar region (principal); M47.895 Other spondylosis, thoracolumbar region; M43.16 Spondylolisthesis, lumbar region; M25.552 Pain in left hip; I10 Essential (primary) hypertension; J45.909 Unspecified asthma, uncomplicated; F41.9 Anxiety disorder, unspecified; K21.9 Gastro-esophageal reflux disease without esophagitis | CPT/HCPCS: 72110; 72170-TC; 73502 ==

== ENCOUNTER 2018-08-17 09:04 | Outpatient (CLI) | payer OTHER | END 2018-08-17 18:51 | disposition home or self-care (01) | LOC: SMI 09:04 | PROVIDERS: ATTEND Internal Medicine | DX: M47.896 Other spondylosis, lumbar region (principal); L05.91 Pilonidal cyst without abscess; M12.88 Other specific arthropathies, not elsewhere classified, other specified site | CPT/HCPCS: 72148 ==

== ENCOUNTER 2018-11-23 11:42 | Outpatient (CLI) | payer OTHER | END 2018-11-23 21:11 | disposition home or self-care (01) | LOC: SMA 11:42 | PROVIDERS: ATTEND Internal Medicine | DX: Z12.31 Encounter for screening mammogram for malignant neoplasm of breast (principal) | CPT/HCPCS: 77067 ==

== ENCOUNTER 2018-12-13 11:51 | Outpatient (CLI) | payer OTHER ==
[2018-12-13 12:37] LABS: BASOPHILS # (AUTO) 0.1 K/uL (0.0-0.2); BASOPHILS % (AUTO) 0.7 % (0.0-2.0); EOSINOPHILS # (AUTO) 0.1 K/uL (0.0-0.4); EOSINOPHILS % (AUTO) 1.6 % (0.0-4.0); HEMATOCRIT 45.8 % (36-48); HEMOGLOBIN 14.9 g/dL (12.0-16.0); LYMPHOCYTES # (AUTO) 1.5 K/uL (1.0-5.5); MEAN CORPUSCULAR HEMOGLOBIN 29 pg (27-31); MEAN CORPUSCULAR HGB CONC 33 % (32-36); MEAN CORPUSCULAR VOLUME 90 fL (79.0-98.0); MONOCYTES # (AUTO) 0.6 K/uL (0.0-1.0); NEUTROPHILS # (AUTO) 4.9 K/uL (1.8-7.7); NEUTROPHILS % (AUTO) 67.7 % (40.0-70.0); PLATELET COUNT (AUTO) 218 K/uL (130-430); RED BLOOD CELL COUNT(AUTO) 5.09 MIL/uL (4.2-6.2); RED CELL DISTRIBUTION WIDTH 12.6 % (9.0-15.0); WHITE BLOOD COUNT (AUTO) 7.2 K/uL (4.8-10.8)
[2018-12-13 12:41] LABS: BILIRUBIN,URINE NEGATIVE (NEGATIVE); BLOOD, URINE NEGATIVE (NEGATIVE); CLARITY/URINE CLEAR (CLEAR); COLOR,URINE YELLOW (YELLOW); GLUCOSE,URINE NEGATIVE (NEGATIVE); KETONES,URINE NEGATIVE (NEGATIVE); LEUKOCYTE ESTERASE ,URINE NEGATIVE (NEGATIVE); NITRITE, URINE NEGATIVE (NEGATIVE); PROTEIN URINE 1+ (NEGATIVE); UROBILINOGEN,URINE 0.2 (0.2-1.0)
[2018-12-13 13:07] LABS: BACTERIA,URINE FEW /HPF (None Seen); MUCUS,URINE None Seen /LPF (None Seen); RBC,URINE 0-3 /HPF (0-3); WBC,URINE 0-3 /HPF (0-3)
[2018-12-13 13:09] LABS: ALBUMIN 3.6 g/dL (3.4-4.8); CALCIUM 9.4 mg/dL (8.4-11.0); CREATININE 0.8 mg/dL (0.55-1.30); POTASSIUM 4.2 mmol/L (3.5-5.1); THYROID STIMULATING HORMONE 1.25 uIu/mL (0.34-4.82); TOTAL BILIRUBIN 0.6 mg/dL (0.0-1.0)
== END 2018-12-13 19:20 | disposition home or self-care (01) ==
LOC: SLB 11:51
PROVIDERS: ATTEND Internal Medicine
DX: I10 Essential (primary) hypertension (principal); E11.65 Type 2 diabetes mellitus with hyperglycemia; E04.2 Nontoxic multinodular goiter; E56.8 Deficiency of other vitamins; E78.5 Hyperlipidemia, unspecified
CPT/HCPCS: 36415; 80053; 80061; 81000-TC; 82306; 82607; 83036; 84443-TC; 85025

== ENCOUNTER 2018-12-16 08:45 | Outpatient (CLI) | payer OTHER | END 2018-12-16 20:58 | disposition home or self-care (01) | LOC: SMI 08:45 | PROVIDERS: ATTEND Internal Medicine | DX: M47.812 Spondylosis without myelopathy or radiculopathy, cervical region (principal); M79.671 Pain in right foot | CPT/HCPCS: 72141 ==

== ENCOUNTER 2018-12-28 08:42 | Outpatient (CLI) | payer OTHER | END 2018-12-28 20:57 | disposition home or self-care (01) | LOC: SUS 08:42 | PROVIDERS: ATTEND Internal Medicine | DX: E04.1 Nontoxic single thyroid nodule (principal) | CPT/HCPCS: 76536-TC ==

== ENCOUNTER 2019-03-11 04:44 | Emergency (ER) | payer OTHER ==
[~2019-03-11] VITALS: Ht 152.4 cm; Wt 57.2 kg
[2019-03-11 04:44] VITALS: BP_SYST 184
[2019-03-11] MEDS ORDERED: LIDOCAINE VISCOUS 2%, 15 ML UDC MM ONE (05:15)
[2019-03-11] MEDS ORDERED: ONDANSETRON 4 MG ODT TAB PO ONE (05:15)
[2019-03-11] MEDS ORDERED: BELLADONNA ALKALOIDS/PHENOBARB 5 ML UDC PO ONE (05:15)
[2019-03-11] MEDS ORDERED: MAG-AL HYDROX/SIMETH 30 ML UDC PO ONE ×2 (05:15→07:15)
[2019-03-11 05:38] LABS: BASOPHILS % (AUTO) 0.7 % (0.0-2.0); EOSINOPHILS # (AUTO) 0.1 K/uL (0.0-0.4); EOSINOPHILS % (AUTO) 1.6 % (0.0-4.0); HEMOGLOBIN 14.8 g/dL (12.0-16.0); LYMPHOCYTES # (AUTO) 1.7 K/uL (1.0-5.5); LYMPHOCYTES % (AUTO) 29.1 % (20.5-51.5); MEAN CORPUSCULAR HEMOGLOBIN 30 pg (27-31); MEAN CORPUSCULAR HGB CONC 34 % (32-36); MEAN CORPUSCULAR VOLUME 90 fL (79.0-98.0); MONOCYTES # (AUTO) 0.5 K/uL (0.0-1.0); MONOCYTES % (AUTO) 8.2 % (1.7-9.3); NEUTROPHILS # (AUTO) 3.5 K/uL (1.8-7.7); NEUTROPHILS % (AUTO) 60.4 % (40.0-70.0); PLATELET COUNT (AUTO) 208 K/uL (130-430); RED CELL DISTRIBUTION WIDTH 13.8 % (9.0-15.0); WHITE BLOOD COUNT (AUTO) 5.8 K/uL (4.8-10.8)
[2019-03-11 05:50] LABS: CALCIUM 10.5 mg/dL (8.4-11.0); CREATININE 0.98 mg/dL (0.55-1.30); POTASSIUM 3.7 mmol/L (3.5-5.1)
[2019-03-11 05:55] LABS: ALBUMIN 3.9 g/dL (3.4-4.8); TOTAL BILIRUBIN 0.3 mg/dL (0.0-1.0)
[2019-03-11] MEDS ORDERED: hydrALAZINE HCL 20 MG/ML VIAL IVP ONE (06:00)
[2019-03-11] MEDS ORDERED: PANTOPRAZOLE SODIUM 40 MG TAB PO ONE (07:00)
[2019-03-11 07:30] VITALS: BP_SYST 146
== END 2019-03-11 07:30 | disposition home or self-care (01) ==
LOC: SED 04:44
DX: K21.9 Gastro-esophageal reflux disease without esophagitis (principal); I10 Essential (primary) hypertension; E03.9 Hypothyroidism, unspecified; J45.909 Unspecified asthma, uncomplicated; E78.5 Hyperlipidemia, unspecified; Z79.899 Other long term (current) drug therapy
CPT/HCPCS: 36415; 74176; 80053; 83690; 85025; 96374; 99284; J0360; Q0162

== ENCOUNTER 2019-03-17 08:25 | Outpatient (CLI) | payer OTHER | END 2019-03-17 20:05 | disposition home or self-care (01) | LOC: SUS 08:25 | PROVIDERS: ATTEND Internal Medicine | DX: R16.0 Hepatomegaly, not elsewhere classified (principal); K76.89 Other specified diseases of liver | CPT/HCPCS: 76700-TC ==

== ENCOUNTER 2019-09-12 09:41 | Outpatient (CLI) | payer OTHER ==
[2019-09-12 10:26] LABS: BASOPHILS # (AUTO) 0.1 K/uL (0.0-0.2); EOSINOPHILS # (AUTO) 0.2 K/uL (0.0-0.4); EOSINOPHILS % (AUTO) 3.2 % (0.0-4.0); HEMATOCRIT 46.2 % (36-48); HEMOGLOBIN 15.5 g/dL (12.0-16.0); LYMPHOCYTES # (AUTO) 1.7 K/uL (1.0-5.5); MEAN CORPUSCULAR HEMOGLOBIN 30 pg (27-31); MEAN CORPUSCULAR HGB CONC 34 % (32-36); MEAN CORPUSCULAR VOLUME 91 fL (79.0-98.0); MONOCYTES # (AUTO) 0.4 K/uL (0.0-1.0); MONOCYTES % (AUTO) 8.6 % (1.7-9.3); NEUTROPHILS # (AUTO) 2.7 K/uL (1.8-7.7); NEUTROPHILS % (AUTO) 54.2 % (40.0-70.0); PLATELET COUNT (AUTO) 208 K/uL (130-430); RED BLOOD CELL COUNT(AUTO) 5.09 MIL/uL (4.2-6.2); RED CELL DISTRIBUTION WIDTH 13.4 % (9.0-15.0)
[2019-09-12 10:47] LABS: CALCIUM 9.5 mg/dL (8.4-11.0); CREATININE 0.77 mg/dL (0.55-1.30); POTASSIUM 3.7 mmol/L (3.5-5.1)
[2019-09-12 11:00] LABS: ALBUMIN 4.1 g/dL (3.4-4.8); THYROID STIMULATING HORMONE 1.39 uIu/mL (0.36-3.74); TOTAL BILIRUBIN 0.4 mg/dL (0.0-1.0)
[2019-09-12 11:24] LABS: BILIRUBIN,URINE NEGATIVE (NEGATIVE); BLOOD, URINE NEGATIVE (NEGATIVE); CLARITY/URINE CLEAR (CLEAR); COLOR,URINE YELLOW (YELLOW); GLUCOSE,URINE NEGATIVE (NEGATIVE); KETONES,URINE NEGATIVE (NEGATIVE); LEUKOCYTE ESTERASE ,URINE NEGATIVE (NEGATIVE); NITRITE, URINE NEGATIVE (NEGATIVE); PROTEIN URINE 1+ (NEGATIVE); UROBILINOGEN,URINE 0.2 (0.2-1.0)
[2019-09-13 08:06] LABS: FOLATE (FOLIC ACID) >20.0 ng/mL (>3.0)
== END 2019-09-12 20:00 | disposition home or self-care (01) ==
LOC: SLB 09:41
PROVIDERS: ATTEND Internal Medicine
DX: E11.65 Type 2 diabetes mellitus with hyperglycemia (principal); E78.5 Hyperlipidemia, unspecified; I10 Essential (primary) hypertension; Z79.899 Other long term (current) drug therapy
CPT/HCPCS: 36415; 80053; 80061; 81003; 82306; 82607; 82746; 83036; 84443-TC; 85025

== ENCOUNTER 2024-07-11 06:06 | Emergency (ER) | payer OTHER ==
[~2024-07-11] VITALS: Ht 152.4 cm; Wt 60.3 kg
[2024-07-11 06:20] VITALS: BP_SYST 144; PULSE 83; RESP 18; TEMP 98.1; O2SAT 98
[2024-07-11] MEDS ORDERED: KETAMINE HCL 500 MG/10 ML VIAL IM ONE (07:00)
[2024-07-11] MEDS: MORPHINE 4 MG INJ. 4 MG/ML VIAL IM ONE (07:00)
[2024-07-11] MEDS: KETAMINE HCL IN 0.9 % NACL 50 MG/5 ML SYRINGE IVP ONE (07:13)
[2024-07-11] MEDS ORDERED: HYDR-3917 PO (08:15)
[2024-07-11 08:36] VITALS: BP_SYST 137; PULSE 63; RESP 12; TEMP 98.6; O2SAT 97
== END 2024-07-11 08:36 | disposition home or self-care (01) ==
LOC: SED 06:06 → EEVIPCON 06:06 → SED 08:36
DX: M54.16 Radiculopathy, lumbar region (principal); J45.909 Unspecified asthma, uncomplicated; K21.9 Gastro-esophageal reflux disease without esophagitis; I10 Essential (primary) hypertension; E03.9 Hypothyroidism, unspecified; E78.5 Hyperlipidemia, unspecified; Z79.899 Other long term (current) drug therapy; Z79.2 Long term (current) use of antibiotics
CPT/HCPCS: 99284; 96372; J2270